=== PATIENT | female | born 1985 | race Caucasian/White ===

== ENCOUNTER 2020-10-26 10:07 | Day surgery (SDC) | payer OTHER ==
[~2020-10-26] VITALS: Ht 165.1 cm; Wt 90.4 kg
[~2020-10-26 10:07] MED LIST: IBUP-1222 PO
[2020-10-26] MEDS ORDERED: LEVO50TA5 PO (10:49)
[2020-10-26 10:58] LABS: HCG UR SG 1.015 (1.003-1.030)
[2020-10-26] MEDS ORDERED: CEFAZOLIN PMX 1GM/50ML 50 ML IV ONE (11:00)
[2020-10-26] MEDS ORDERED: SODIUM CHLORIDE 0.9% 1,000 ML IV SCH (11:00)
[2020-10-26 11:13] VITALS: BP 127/79
[2020-10-26] MEDS ORDERED: LIDOCAINE 1%, 20ML ONE (11:37)
[2020-10-26] MEDS ORDERED: LIDOCAINE 1%, 10ML ONE (11:37)
[2020-10-26] MEDS ORDERED: FENTANYL PF 100 MCG/2ML ONE ×2 (12:00)
[2020-10-26] MEDS ORDERED: FLUMAZENIL 0.1 MG/1 ML, 5ML ONE (12:00)
[2020-10-26] MEDS ORDERED: NALOXONE 1 MG/ML, 2ML ONE (12:00)
[2020-10-26] MEDS ORDERED: MIDAZOLAM 1 MG/ML, 5ML ONE (12:00)
== END 2020-10-26 14:45 | disposition home or self-care (01) ==
LOC: OUT 10:07
PROVIDERS: ATTEND Internal Medicine Hematology & Oncology
DX: C81.41 Lymphocyte-rich Hodgkin lymphoma, lymph nodes of head, face, and neck (principal); E03.9 Hypothyroidism, unspecified; Z79.890 Hormone replacement therapy; Z79.899 Other long term (current) drug therapy; Z98.890 Other specified postprocedural states
CPT/HCPCS: 36561; 38505; 76937; 77001; 81025; 99156; 99157; C1788; J0690; J1642; J2250; J3010; J7030; 76942; J2310

== ENCOUNTER 2020-11-01 14:49 | Outpatient (CLI) | payer OTHER ==
[~2020-11-01 14:49] MED LIST changes: +LEVO50TA5 PO
== END 2020-11-01 23:59 | disposition home or self-care (01) ==
LOC: CFH 14:49
PROVIDERS: ATTEND Internal Medicine Hematology & Oncology
DX: C81.41 Lymphocyte-rich Hodgkin lymphoma, lymph nodes of head, face, and neck (principal); M54.2 Cervicalgia; R22.1 Localized swelling, mass and lump, neck
CPT/HCPCS: 76536